=== PATIENT | male | born 1970 | race African-American/Black ===

== ENCOUNTER 2019-09-26 02:55 | Emergency (ER) | payer MEDICAID, OTHER ==
[~2019-09-26] VITALS: Ht 180.3 cm; Wt 81.6 kg
[2019-09-26 03:24] VITALS: BP 157/84
--- NOTE | 2019-09-26 03:34 | NUR ---
RADIOLOGY AT BEDSIDE FOR XRAY
== END 2019-09-26 03:56 | disposition home or self-care (01) ==
LOC: ER 02:58
DX: S62.336A Displaced fracture of neck of fifth metacarpal bone, right hand, initial encounter for closed fracture (principal); Z88.6 Allergy status to analgesic agent; W22.8XXA Striking against or struck by other objects, initial encounter; Y93.E8 Activity, other personal hygiene; Y92.89 Other specified places as the place of occurrence of the external cause; Y99.8 Other external cause status
CPT/HCPCS: 73130-TC